=== PATIENT | female | born 1995 | race Caucasian/White ===

== ENCOUNTER 2017-03-15 17:40 | Emergency (ER) | payer OTHER ==
[2017-03-15 18:22] VITALS: BP 116/71
--- NOTE | 2017-03-15 19:07 | UC ---
Throat Pain/Nasal Orlin HPI - HPI Summary HPI Summary: Sore throat no fever for 2 days, nasal drainage and congestion - History of Current Complaint Chief Complaint: UCRespiratory Stated Complaint: SORE THROAT,FEVER Time Seen by Provider: 03/15/17 18:51 Hx Obtained From: Patient Hx Last Menstrual Period: 02/16/17 ?: No Onset/Duration: Sudden Onset, Lasting Days - 2, Still Present Severity: Mild Cough: None Associated Signs & Symptoms: Positive: Nasal Discharge - Allergies/Home Medications Allergies/Adverse Reactions: Allergies Allergy/AdvReac Type Severity Reaction Status Date / Time Penicillins Allergy Unknown Verified 03/15/17 18:22 Reaction Details Home Medications: Home Medications Control Pills 1 tab PO DAILY 03/15/17 [History] PMH/Surg Hx/FS Hx/Imm Hx Previously Healthy: Yes Other History Of: Negative For: HIV, Hepatitis C - Surgical History Surgical History: Yes Surgery Procedure, Year, and Place: L ankle fx age 14 - Family History Known Family History: Positive: Hypertension - Social History Occupation: Employed Full-time Lives: With Family Alcohol Use: Rare Substance Use Type: None Smoking Status (MU): Former Smoker Type: Cigarettes Amount Used/How Often: 1/2 ppd Length of Time of Smoking/Using Tobacco: started at age 15 Have You Smoked in the Last Year: Yes When Did the Patient Quit Smoking/Using Tobacco: 02/16/17 Household Exposure Type: Cigarettes Cessation Counseling: Patient Advised to Stop Review of Systems Constitutional: Negative Skin: Negative Eyes: Negative ENT: Sore Throat, Nasal Discharge Respiratory: Negative Cardiovascular: Negative Gastrointestinal: Negative Genitourinary: Negative Motor: Negative Neurovascular: Negative Musculoskeletal: Negative Neurological: Negative Psychological: Negative All Other Systems Reviewed And Are Negative: Yes Physical Exam Triage Information Reviewed: Yes Appearance: Well-Appearing, No Pain Distress, Well-Nourished Vital Signs: Initial Vital Signs Temp 98.1 F 03/15/17 18:15 Pulse 70 03/15/17 18:15 Resp 14 03/15/17 18:15 BP 116/71 03/15/17 18:15 Pulse Ox 100 03/15/17 18:15 Vital Signs Reviewed: Yes Eye Exam: Normal Eyes: Positive: Conjunctiva Clear ENT Exam: Normal ENT: Positive: Normal ENT inspection, Hearing grossly normal, Pharynx normal, Nasal congestion, Nasal drainage, TMs normal. Negative: Tonsillar swelling, Tonsillar exudate, Trismus, Muffled/hoarse voice Dental Exam: Normal Neck exam: Normal Neck: Positive: Supple, Nontender Respiratory Exam: Normal Respiratory: Positive: Chest non-tender, Lungs clear, Normal breath sounds, No respiratory distress, No accessory muscle use Cardiovascular Exam: Normal Cardiovascular: Positive: RRR, No Murmur, Pulses Normal, Brisk Capillary Refill Musculoskeletal Exam: Normal Musculoskeletal: Positive: Strength Intact, ROM Intact, No Edema Neurological Exam: Normal Neurological: Positive: Alert, Muscle Tone Normal Psychological Exam: Normal Skin Exam: Normal Throat Pain/Nasal Course/Dx - Course Assessment/Plan: flonase, ibuprofen, zyrtec D, increase fluids, follow with pcp prn - Differential Dx/Diagnosis Differential Diagnosis/HQI/PQRI: Laryngitis, Otitis Media, Pharyngitis, Sinusitis, URI Provider Diagnoses: Allergic Rhinnitis, Discharge - Discharge Plan Condition: Stable Disposition: HOME Patient Education Materials: Ibuprofen (By mouth), Cetirizine/Pseudoephedrine ( By mouth), Fluticasone (Into the nose), Allergic Rhinitis (ED) Forms: *Work Release Referrals: Barbara Antoine MD [Primary Care Provider] - If Needed
== END 2017-03-15 19:39 | disposition home or self-care (01) ==
LOC: UCCORT 17:40
DX: J02.9 Acute pharyngitis, unspecified (principal); Z87.891 Personal history of nicotine dependence; R50.9 Fever, unspecified; Z88.0 Allergy status to penicillin
CPT/HCPCS: 87651; 99211; G0463

== ENCOUNTER 2017-11-20 16:55 | Emergency (ER) | payer OTHER ==
[2017-11-20 18:49] VITALS: BP 134/62
--- NOTE | 2017-11-20 19:15 | UC ---
Nausea/Vomiting/Diarrhea HPI - HPI Summary HPI Summary: 22 y/o female presents to the urgent care c/o nausea and vomiting since last night 1 hr after she ate dinner. She had 5 episodes of vomiting over night. this morning symptoms resolved, but she feels fatigue w/ decrease appetite. She had abdominal cramping pain which resolved w/ vomiting Pt request a note for work. Pt has been drinking plenty of fluids. Pt denies abdominal pain,fever, SOB , chest pain, diarrhea or constipation. LMP: 11/13/2017 w/ regular menstrual cycles - History of Current Complaint Chief Complaint: UCGI Stated Complaint: STOMACH ACHE, VOMITING Time Seen by Provider: 11/20/17 19:01 Hx Obtained From: Patient Hx Last Menstrual Period: 11/13/2017 ?: No Onset/Duration: Gradual Onset, Lasting Days - 1 day Timing: Intermittent Episodes Lasting: - seconds Severity Initially: Moderate Severity Currently: Mild Pain Intensity: 0 Pain Scale Used: 0-10 Numeric Location: Other - cramping abdominal pain relieved w/ vomiting Character: Cramping Aggravating Factor(s): Food Alleviating Factor(s): Spontaneous Resolution Nausea/Vomiting Presence: Nauseated Vomiting Frequency: Every 3-4 hours - over night Nausea/Vomiting Duration: 0-12 hours Vomiting Characteristics: Bilious Diarrhea Presence: No - Risk Factors Influenza Risk Factors: Negative Surgical Obstruction Risk Factor(s): Negative - Allergies/Home Medications Allergies/Adverse Reactions: Allergies Allergy/AdvReac Type Severity Reaction Status Date / Time Penicillins Allergy Unknown Verified 11/20/17 18:49 Reaction Details PMH/Surg Hx/FS Hx/Imm Hx Previously Healthy: Yes - Pt denies PMHX Other History Of: Negative For: HIV, Hepatitis C - Surgical History Surgical History: Yes Surgery Procedure, Year, and Place: L ankle fx age 14 - Family History Known Family History: Positive: Hypertension - Social History Alcohol Use: Rare Substance Use Type: None Smoking Status (MU): Current Some Day Smoker Type: Cigarettes Amount Used/How Often: 1/2 ppd Length of Time of Smoking/Using Tobacco: started at age 15 Have You Smoked in the Last Year: Yes When Did the Patient Quit Smoking/Using Tobacco: 02/16/17 Household Exposure Type: Cigarettes Review of Systems Constitutional: Fatigue, Other - decrease appetite Skin: Negative Eyes: Negative ENT: Negative Respiratory: Negative Cardiovascular: Negative Gastrointestinal: Abdominal Pain, Vomiting, Nausea Genitourinary: Negative Motor: Negative Neurovascular: Negative Musculoskeletal: Negative Neurological: Negative Psychological: Negative Is Patient Immunocompromised?: No All Other Systems Reviewed And Are Negative: Yes Physical Exam - Summary Physical Exam Summary: Vital Signs Reviewed: Yes General:Patient is a well developed and nourished female who is sitting comfortable in the examining table. Patient is not in any acute respiratory distress. Eyes: Positive: Conjunctiva Clear - PERRLA, EOMI, fundi grossly normal ENT: Positive: Normal ENT inspection, Hearing grossly normal, Pharynx normal, TMs normal Neck: Positive: Supple, Nontender, No Lymphadenopathy Respiratory: Positive: Chest non-tender, Lungs clear, Normal breath sounds, No respiratory distress Cardiovascular: Positive: RRR,S1 and S2 present, No Murmur, Pulses Normal, Brisk Capillary Refill Abdomen Description: Positive: Nontender, Other: - Abd: Flat with no distention. No surface trauma, scars, incisions. hyperactive bowel sounds present in all four quadrants. No tenderness, guarding, rigidity to palpation. No masses palpated, no pulsation in epigastric area. No organomegaly. Negative [place] signs. No periumbilical tenderness. No rebound in the lower quadrants. NT over [place] point. Good femoral pulses bilaterally. No hernia noted. No CVAT bilaterally Musculoskeletal: Positive: Strength Intact, ROM Intact, No Edema,FROM in all major joints, no edema, no cyanosis or clubbing. Neuro: Alert and oriented x 3. No acute neurological deficits. Speech is normal. Psychological: WNL Skin: Dry and warm Triage Information Reviewed: Yes Vital Signs: Initial Vital Signs Temp 98.7 F 11/20/17 18:45 Pulse 73 11/20/17 18:45 Resp 18 11/20/17 18:45 BP 134/62 11/20/17 18:45 Pulse Ox 100 11/20/17 18:45 Naus/Vom/Diarrhea Course/Dx - Course Course Of Treatment: 22 y/o female presents to the urgent care c/o nausea and vomiting since last night 1 hr after she ate dinner. She had 5 episodes of vomiting over night. this morning symptoms resolved, but she feels fatigue w/ decrease appetite. She had abdominal cramping pain which resolved w/ vomiting. Pt request a note for work. Pt has been drinking plenty of fluids. Pt denies abdominal pain,fever, SOB, chest pain, diarrhea or constipation. LMP: 11/13/2017 w/ regular menstrual cycles. Hx obtained. PE: WNL. Pt most likely with a gastroenteritis. PE: WNL. Pt Rx Zofran PO for Nausea and vomiting, advised to increase fluid intake, eat soft meals, rest. However if symptoms worsen and abdominal pain develops to go Immediately to the ER for further management. Pt explained D/C instructions. Note given for work.Pt understood and agreed w/ plan of care. Pt left the clinic ambulating, A&OX3 - Differential Dx/Diagnosis Differential Diagnoses - Female: Appendicitis, , Gastroenteritis (Viral ), Gastroenteritis (Bacterial), Vomiting, Gastritis, Dehydration Provider Diagnoses: 1- Acute nausea and vomiting. 2-Acute abdominal pain Condition At Discharge: Stable Discharge - Discharge Plan Condition: Stable Disposition: HOME Prescriptions: Ondansetron ODT TAB* [Zofran 4 MG Odt TAB*] 4 mg PO Q6H PRN #12 tab.odt PRN Reason: Vomiting Patient Education Materials: Acute Nausea and Vomiting (ED) Forms: *Work Release Referrals: Barbara Antoine MD [Primary Care Provider] - If Needed Additional Instructions: 1- Please increase fluid intake w/ Pedialyte OTC or Gatorade. Eat soft meals. rest and avoid strenuous exercise 2- If you develop fever or abdominal pain w/ recurrent episodes of vomiting please take your child to the ER, otherwise f/u with your PCP for further management
== END 2017-11-20 19:29 | disposition home or self-care (01) ==
LOC: UCCORT 16:55
DX: R11.2 Nausea with vomiting, unspecified (principal); R10.0 Acute abdomen; Z88.0 Allergy status to penicillin; Z87.891 Personal history of nicotine dependence
CPT/HCPCS: 99212; G0463

== ENCOUNTER 2019-03-01 17:18 | Emergency (ER) | payer SELFPAY ==
[2019-03-01 18:19] VITALS: BP 110/72
--- NOTE | 2019-03-01 18:28 | UC ---
Neck Pain HPI - HPI Summary HPI Summary: Woke up yesterday w/ a stiff neck. Feels like its worsening. feels it is worse at the base of her neck. Able to move neck but its very stiff. TOOK 2 TYLENOL 1000MG TODAY 1430 W/ NO PAIN RELIEF. ALSO TRIED HEAT APPLIC W/ NO RELIEF. denies being sick recently. Has never had episode like this. denies stress or physical injury or sports. Pt also c/o of L ear muffled feeling and drainage. denies ear pain or fever. - History of Current Complaint Chief Complaint: UCGeneralIllness Stated Complaint: NECK COMPLAINT Time Seen by Provider: 03/01/19 18:19 Hx Obtained From: Patient Hx Last Menstrual Period: 02/26/19 Mechanism Of Injury: No Known Trauma Onset/Duration: Sudden Onset Severity: Moderate Pain Intensity: 6 Pain Scale Used: 0-10 Numeric Location: Discrete At: - neck Character: Stiff Aggravating Factors: Nothing Alleviating Factors: Position - Allergies/Home Medications Allergies/Adverse Reactions: Allergies Allergy/AdvReac Type Severity Reaction Status Date / Time Penicillins Allergy Unknown Verified 03/01/19 18:13 Reaction Details PMH/Surg Hx/FS Hx/Imm Hx - Additional Past Medical History Additional PMH: no chronic issues Previously Healthy: Yes Other History Of: Negative For: HIV, Hepatitis C - Surgical History Surgical History: Yes Surgery Procedure, Year, and Place: L ankle fx age 14 - Family History Known Family History: Positive: Hypertension - Social History Alcohol Use: Occasionally Substance Use Type: None Smoking Status (MU): Light Every Day Tobacco Smoker Type: Cigarettes Amount Used/How Often: 2-3 CIGS/DAY Length of Time of Smoking/Using Tobacco: started at age 15 Have You Smoked in the Last Year: Yes When Did the Patient Quit Smoking/Using Tobacco: 02/16/17 Household Exposure Type: Cigarettes Review of Systems All Other Systems Reviewed And Are Negative: Yes Constitutional: Negative: Fever, Chills, Fatigue Skin: Negative: Rash Eyes: Negative: Blurred Vision ENT: Positive: Ear Ache - rather fullness. Negative: Sore Throat Respiratory: Positive: Negative Cardiovascular: Positive: Negative Neurovascular: Negative: Decreased Sensation Musculoskeletal: Positive: Arthralgia - neck pain. Negative: Decreased ROM Neurological: Negative: Headache, Weakness, Paresthesia, Numbness Physical Exam Appearance: Well-Appearing Vital Signs: Initial Vital Signs Temp 97.8 F 03/01/19 18:13 Pulse 73 03/01/19 18:13 Resp 16 03/01/19 18:13 BP 110/72 03/01/19 18:13 Pulse Ox 100 03/01/19 18:13 ENT: Positive: TMs normal - R side, Other - L TM not visualized and impacted w/ cerumen.. Negative: Nasal drainage Neck: Positive: Supple, Nontender, No Lymphadenopathy, Other: - pt. shifting her shoulder and neck due to pain.. Negative: Nuchal Rigidity Respiratory Exam: Normal Cardiovascular Exam: Normal Musculoskeletal: Positive: Strength Intact - neck, ROM Intact - neck, shoulders Neurological: Positive: Alert, Other: - CN II - XII grossly intact Skin: Negative: Rashes Neck Pain Course/Dx - Course Course Of Treatment: One day of stiff neck, somewhat painful. Denies illness, souza. On exam neck has FROM w/ no issues, shoulders also have FROM. Vitals good. Afebrile and not thought to be infectious at this time. Plan is to have short term muscle relaxer w/ hot compress but if not improving may need further evaluation. Gave pt. info for primary care. For her L ear we discussed conservative measures for impacted cerumen. - Differential Dx/Diagnosis Differential Dx/HQI/PQRI: Sprain, Strain, Torticollis, Trauma Provider Diagnosis: Neck stiffness, Impacted cerumen of left ear Discharge - Sign-Out/Discharge Documenting (check all that apply): Patient Departure All imaging exams completed and their final reports reviewed: No Studies - Discharge Plan Condition: Good Disposition: HOME Prescriptions: Cyclobenzaprine (NF) [Cyclobenzaprine 5 MG (NF)] 5 mg PO TID PRN 5 Days #15 tab PRN Reason: Spasms - Back Patient Education Materials: Muscle Spasm (ED) Referrals: [facility] [Outside] Additional Instructions: If no improvement or worsening of symptoms please follow up with a primary care provider. I've attached a list of providers to this packet. - Billing Disposition and Condition Condition: GOOD Disposition: Home
== END 2019-03-01 18:39 | disposition home or self-care (01) ==
LOC: UCCORT 17:18
DX: M43.6 Torticollis (principal); H61.22 Impacted cerumen, left ear; F17.210 Nicotine dependence, cigarettes, uncomplicated
CPT/HCPCS: 99212; G0463